=== PATIENT | male | born 1995 | race African-American/Black ===

== ENCOUNTER 2017-02-16 04:17 | Emergency (ER) | payer BC, MEDICAID ==
[~2017-02-16] VITALS: Ht 175.3 cm; Wt 86.0 kg
[2017-02-16 06:31] VITALS: BP 136/88
== END 2017-02-16 06:47 | disposition home or self-care (01) ==
LOC: ER 04:17
DX: S90.01XA Contusion of right ankle, initial encounter (principal); F20.9 Schizophrenia, unspecified; F17.200 Nicotine dependence, unspecified, uncomplicated; Z88.0 Allergy status to penicillin; X50.0XXA Overexertion from strenuous movement or load, initial encounter; Y93.89 Activity, other specified; Y92.89 Other specified places as the place of occurrence of the external cause; Y99.8 Other external cause status
CPT/HCPCS: 73610; 99284